=== PATIENT | male | born 1955 | race Caucasian/White ===

== ENCOUNTER 2019-07-12 19:35 | Observation (INO) | payer BC ==
[2019-07-12] MEDS ORDERED: NITROGLYCERIN SL TABS 0.4 MG TAB SUBLINGUAL STA (19:51)
[2019-07-12] MEDS ORDERED: ASPIRIN 81 MG PO STA (19:51)
--- NOTE | 2019-07-12 19:58 | ED ---
Chest Pain HPI - General Chief Complaint: Chest Pain Stated Complaint: chest pain Time Seen by Provider: 07/12/19 19:44 Source: patient, RN notes reviewed Mode of arrival: wheelchair Limitations: no limitations - History of Present Illness Initial Comments: This is a 63-year-old male with a history of hypertension states he had the onset about one hour ago of midsternal lower chest pain dull in nature 4 and 5/10 severity associated with some shortness of breath and diaphoresis. He does state he had an episode earlier today that got better started around 1 PM and did get better quickly. This was not getting better. He has no prior history of heart disease he asked he states he took some Pepto-Bismol without any relief. He also did not take his blood pressure medication today. Is no personal history of any heart or lung disease. He does socially drink about perhaps once a week. Nothing recent. MD Complaint: chest pain, other - Related Data Home Medications Medication Instructions Recorded Confirmed Cholecalciferol [Vitamin D3] 1,000 unit PO DAILY 04/06/16 04/06/16 Febuxostat [Uloric] 80 mg PO MOTUWETHFR 04/06/16 04/06/16 Tadalafil [Cialis] 5 mg PO DAILY PRN 04/06/16 04/06/16 Previous Rx's Medication Instructions Recorded HYDROcodone/APAP 5-325MG [[place] 1 tab PO Q6HR PRN #15 tab 04/06/16 5-325] Ondansetron Odt [Zofran Odt] 4 mg PO Q12HR PRN #10 tab 04/06/16 Tamsulosin HCl [Flomax] 0.4 mg PO DAILY #14 cap 04/06/16 Allergies Allergy/AdvReac Type Severity Reaction Status Date / Time Lajas And Derivatives Allergy Rash/Hives Verified 07/12/19 19:41 [Lajas] Fish Containing Products Allergy Rash/Hives Verified 07/12/19 19:41 [Fish] tomato Allergy Rash/Hives Verified 07/12/19 19:41 Review of Systems ROS Statement: Those systems with pertinent positive or pertinent negative responses have been documented in the HPI. ROS Other: All systems not noted in ROS Statement are negative. EKG Findings - EKG Results: EKG: interpreted by ERMD (Sinus bradycardia rate of 52 AZ interval 204 QRS 84 QT since QTC 458/425 LVH by voltage criteria no acute ST-T wave changes) Past Medical History Past Medical History: Hypertension Additional Past Medical History / Comment(s): kidney stones, gout History of Any Multi-Drug Resistant Organisms: None Reported Past Surgical History: Hernia Repair Past Psychological History: No Psychological Hx Reported Smoking Status: Never smoker Past Alcohol Use History: None Reported Past Drug Use History: None Reported General Exam - General Exam Comments Initial Comments: This is a well-developed well-nourished awake alert oriented times 3 male Limitations: no limitations General appearance: alert, anxious Head exam: Present: atraumatic, normocephalic, normal inspection Eye exam: Present: normal appearance, PERRL, EOMI. Absent: scleral icterus, conjunctival injection, periorbital swelling ENT exam: Present: normal exam, mucous membranes moist Neck exam: Present: normal inspection, full ROM, other (Stridor or bruits). Absent: tenderness, meningismus, lymphadenopathy Respiratory exam: Present: normal lung sounds bilaterally. Absent: respiratory distress, wheezes, rales, rhonchi, stridor Cardiovascular Exam: Present: normal rhythm, bradycardia. Absent: systolic murmur, diastolic murmur, rubs, gallop, clicks GI/Abdominal exam: Present: soft, normal bowel sounds. Absent: distended, tenderness, guarding, rebound, rigid Extremities exam: Present: normal inspection, full ROM, normal capillary refill. Absent: tenderness, pedal edema, joint swelling, calf tenderness Back exam: Present: normal inspection Neurological exam: Present: alert, oriented X3, CN II-XII intact Psychiatric exam: Present: normal affect, normal mood Skin exam: Present: warm, dry, intact, normal color. Absent: rash Course Vital Signs 07/12/19 07/12/19 19:38 19:55 Temperature 98.2 F Pulse Rate 50 L 50 L Respiratory 17 19 Rate Blood Pressure 214/94 190/83 O2 Sat by Pulse 98 97 Oximetry - Reevaluation(s) Reevaluation #1: 07/12/19 21:12 16 year improved after the treatment rendered repeat EKG showed a sinus rhythm of 48 AZ interval 206 QRS 82 QT since QTC 450/40 to LVH no acute ST-T wave changes essentially no change from the previous Chest Pain MDM - MDM Imaging was reviewed no acute findings. Patient did get relief from the pain. I did a long discussion with him regarding the findings I did discuss case with Dr. Johnson. Patient will be admitted for cardiology consultation and evaluation. Per instructions from Dr. Johnson subcu heparin as well as Critical Care Time Critical Care Time: Yes Critical Care Time: Patient to responsive therapy discussion with the admitting physician admission orders and documentation of the above. Disposition Clinical Impression: Unstable angina pectoris, Chest pain, Pancreatitis Disposition: ADMITTED IP TO THIS [facility] Condition: Fair Referrals: Yunier Hernandez MD [Primary Care Provider] - 1-2 days
[2019-07-12 20:04] LABS: Basophils # (A) 0.1 k/uL (0-0.2); Basophils % (A) 2 %; Eosinophils # (A) 0.1 k/uL (0-0.7); Eosinophils % (A) 2 %; HCT 44.6 % (39.0-53.0); HGB 14.9 gm/dL (13.0-17.5); Lymphocytes # (A) 1.7 k/uL (1.0-4.8); Lymphocytes % (A) 23 %; MCH 29.9 pg (25.0-35.0); MCHC 33.4 g/dL (31.0-37.0); MCV 89.4 fL (80.0-100.0); Monocytes # (A) 0.4 k/uL (0-1.0); Monocytes % (A) 6 %; Neutrophils # (A) 4.8 k/uL (1.3-7.7); Neutrophils % (A) 66 %; Platelet Count 188 k/uL (150-450); RBC 4.99 m/uL (4.30-5.90); RDW 13.1 % (11.5-15.5); WBC 7.2 k/uL (3.8-10.6)
[2019-07-12 20:13] LABS: Albumin 4.3 g/dL (3.5-5.0); Calcium 9.3 mg/dL (8.4-10.2); Magnesium 2.1 mg/dL (1.6-2.3); Potassium 4.9 mmol/L (3.5-5.1); Total Bilirubin 0.9 mg/dL (0.2-1.3); Total Protein 7.4 g/dL (6.3-8.2)
[2019-07-12 20:17] LABS: INR 0.9 (<1.2); Partial Thromboplastin Time 28.8 sec (22.0-30.0); Prothrombin Time 9.9 sec (9.0-12.0)
[2019-07-12 20:19] LABS: D-Dimer 0.65 mg/L FEU (<0.60)
[2019-07-12] MEDS ORDERED: NITROGLYCERIN SL TABS 0.4 MG TAB SUBLINGUAL PRN (21:13)
[2019-07-12 21:25] VITALS: RESP 18
[2019-07-13] MEDS ORDERED: HEPARIN SODIUM,PORCINE 5,000 UNIT/ML 1 ML VIAL SQ SCH
[2019-07-13] MEDS ORDERED: ENOXAPARIN 80 MG/0.8 ML SYRINGE SQ STA (07:20)
[2019-07-13] MEDS ORDERED: SODIUM CHLORIDE 0.9% 1,000 ML IV SCH (07:30)
--- NOTE | 2019-07-13 07:40 | XR ---
EXAMINATION TYPE: XR chest 2V DATE OF EXAM: 07/12/2019 COMPARISON: None HISTORY: Chest pain TECHNIQUE: Frontal and lateral views of the chest are obtained. FINDINGS: There is no heart failure nor confluent pneumonic infiltrate. Heart size is normal. There is no pleural effusion. There is slight increased interstitial markings in the lower lung brown. The re are chest leads. IMPRESSION: Minimal fibrotic changes. Normal heart. No heart failure.
[2019-07-13] MEDS ORDERED: ASPIRIN 325 MG TAB PO STA (07:44)
[2019-07-13] MEDS ORDERED: ATORVASTATIN 80 MG TAB PO STA (07:44)
[2019-07-13] MEDS ORDERED: ALPRAZolam 0.25 MG TAB PO PRN (07:44)
[2019-07-13] MEDS ORDERED: NITROGLYCERIN SL TABS 0.4 MG TAB SUBLINGUAL PRN (07:44)
[2019-07-13] MEDS ORDERED: SODIUM CHLORIDE 0.9% 1,000 ML in EMPTY BAG 1 BAG IV ONE (07:44)
[2019-07-13] MEDS ORDERED: ALPRAZolam 0.5 MG TAB PO PRN (07:44)
[2019-07-13 08:12] LABS: Cholesterol 159 mg/dL (<200); HDL Cholesterol 52 mg/dL (40-60); LDL Cholesterol,Calculated 86 mg/dL (0-99); Triglycerides 104 mg/dL (<150)
[2019-07-13] MEDS ORDERED: METOPROLOL TARTRATE 12.5 MG TAB PO SCH (09:00)
[2019-07-13] MEDS ORDERED: ASPIRIN 325 MG TAB PO SCH (09:00)
[2019-07-13] MEDS ORDERED: IV FLUID CONTINUATION 1,000 ML IV ONE (10:30)
[2019-07-13] MEDS ORDERED: LIDOCAINE 1% INJ 10MG/ML (20 ML MDV) SQ ONE (10:39)
[2019-07-13] MEDS ORDERED: MIDAZOLAM 2 MG/2 ML VIAL IV ONE (10:39)
[2019-07-13] MEDS: VERAPAMIL SYRINGE (5 MG/10 ML) INTRAARTER ONE ×2 (10:40→10:53)
[2019-07-13] MEDS ORDERED: HEPARIN SODIUM 1,000 UN/ML (10ML VL) IV ONE (10:43)
--- NOTE | 2019-07-13 10:46 | CONS ---
CONSULTATION Mr. 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 He was playing pickle ball yesterday in the morning and developed some chest pressure and tightness that seemed to progressively get worse. He felt concerned, went home and felt better for a while but again in the 6 pm while he was doing some walking around the house, he felt the same pressure come on. He came into the hospital. EKG on arrival revealed a sinus mechanism with inferior nondiagnostic Q-waves and borderline voltage criteria for LVH. No acute findings are noted. His 3 sets of troponins were obtained. The initial one was 0.02 and then came down. They are not completely normal, but they are in the diaz zone with a profile raising the possibility of being related to his chest discomfort. However, he is more comfortable at this time, but earlier in the day he had chest pressure. His D-dimer was borderline elevated at 0.65. He has hypertension, but no other major risk factors. He does not smoke. He is a reasonably active person who was playing pickle ball yesterday when this occurred. Patient's symptoms of chest pressure occurred as he was playing pickAgitar ball and progressively got worse associated with some diaphoresis. It got better, but it came back again in the evening. He took some Pepto-Bismol without relief. Quality of pain does suggest angina and troponin is elevated to a more borderline extent. PAST MEDICAL HISTORY: 1. Hypertension. 2. Benign prostatic hypertrophy. 3. Renal stones and gout. 4. Status post hernia surgery for his umbilical hernia. MEDICATIONS: At home include [place] for pain. Flomax 0.4 mg daily, also takes vitamin supplements. He also takes losartan 25 mg daily. ALLERGIES: He is not allergic to any medications. PHYSICAL EXAMINATION: Blood pressure is 140/80, pulse rate is 60 per minute, regular. HEENT: Unremarkable. Fundus was not examined by me. NECK: Supple. No JVD. I do not hear a carotid bruit. There is no thyromegaly. HEART: Exam reveals S1, S2 heard normally. No significant murmurs. LUNGS: Clear. ABDOMEN: Soft, nontender. LOWER EXTREMITIES: Reveal normal pulses. No edema. CENTRAL NERVOUS SYSTEM: Grossly within normal limits. EKG revealed sinus mechanism, nonspecific ST changes, borderline voltage criteria for LVH and nondiagnostic inferior Q-waves. IMPRESSION: 1. Acute ischemic syndrome. Cannot exclude coronary artery disease. 2. Hypertension. 3. History of gout. RECOMMENDATIONS: I am recommending that we anticoagulate him and proceed with coronary angiography. I explained to him the rationale, risks, benefits, and options. Patient's presentation, symptomatology with exercise strongly suggest unstable angina. The patient understands risks, benefits, options, rationale and wishes to proceed with the procedure. MMODL / IJN: [id number] /
[2019-07-13] MEDS ORDERED: IOPAMIDOL-370 100ML BTL INJ ONE (10:54)
--- NOTE | 2019-07-13 11:53 | CC ---
CARDIAC CATHETERIZATION REPORT DATE OF SERVICE: 07/13/2019 PROCEDURE: 1. Left heart catheterization, coronary angiography. Moderate conscious sedation time was 16 minutes. PROCEDURE PERFORMED: By Dr. Hamlet Michael. CLINICAL INFORMATION: Mr. Chuy Arvizu is a 63-year-old gentleman with a history of hypertension who came into the hospital with chest pressure suggestive angina that occurred on two occasions associated with some diaphoresis. His troponins were negative, but because of his presentation and risk factors, he was advised coronary angiography after due discussion regarding risks, benefits, and options. PROCEDURE NOTE: Under local anesthesia and strict aseptic precautions, a 6-Indonesian introducer was placed in the right radial artery. Using a 3.5 left and a 4.0 right Ron catheters, I performed coronary angiography and then checked LV pressures but did not perform LV gram. The same right catheter was used to check LV pressures. Sheath was taken out and TR band applied as per protocol and patient was sent to the room in stable condition. CARDIAC CATHETERIZATION FINDINGS: The left ventricle end-diastolic pressure was about 14 mmHg without any gradient across the aortic valve. CORONARY ANGIOGRAPHY FINDINGS: 1. RIGHT CORONARY ARTERY: Technically dominant vessel. No significant disease distally, bifurcates into small PLV, large PDA, both of which are free of significant disease and there is no significant disease in the dominant RCA. 2. LEFT MAIN CORONARY ARTERY: Short patent, disease-free vessel that bifurcates into LAD and circumflex. 3. LEFT ANTERIOR DESCENDING CORONARY ARTERY: Good caliber vessel, extends along the anterior wall, gives off a large diagonal branch in the midportion, several small diagonal and septal branches, runs all the way to the apex, has minor irregularities and no significant disease. 4. LEFT POSTERIOR CIRCUMFLEX CORONARY ARTERY: Nondominant vessel, gives off a single obtuse marginal that runs laterally, divides into two branches and a second small obtuse marginal branch. There are minor irregularities, but no significant obstructive disease is noted. 5. LEFT VENTRICULOGRAM: This was not performed. FINAL IMPRESSION: This patient has a right dominant system, noncritical coronary artery disease, slightly elevated filling pressures without any gradient across the aortic valve. RECOMMENDATION: I am recommending continued medical therapy with optimal BP control. Patient can be discharged later on today if he remains stable. Same medical regimen and I will see him in the office in about a week or so. Findings were discussed with the patient and family. MMODL / IJN: [id number] /
--- NOTE | 2019-07-13 12:09 | ECHOF ---
Referral Reason:Chest pain MEASUREMENTS -------- HEIGHT: 182.9 cm WEIGHT: 104.3 kg BP: 151/74 RVIDd: 3.9 cm (< 3.3) IVSd: 1.4 cm (0.6 - 1.1) LVIDd: 4.5 cm (3.9 - 5.3) LVPWd: 1.5 cm (0.6 - 1.1) IVSs: 1.8 cm LVIDs: 3.5 cm LVPWs: 1.7 cm LA Diam: 4.2 cm (2.7 - 3.8) LAESV Index (A-L): 34.19 ml/m Ao Diam: 3.2 cm (2.0 - 3.7) AV Cusp: 2.1 cm (1.5 - 2.6) MV EXCURSION: 19.135 mm (> 18.000) MV EF SLOPE: 95 mm/s (70 - 150) EPSS: 0.5 cm MV E Nicolas: 0.86 m/s MV DecT: 159 ms MV A Nicolas: 0.61 m/s MV E/A Ratio: 1.41 RAP: 5.00 mmHg RVSP: 36.04 mmHg FINDINGS -------- Sinus rhythm. This was a technically adequate study. The left ventricular size is normal. There is moderate concentric left ventricular hypertrophy. O verall left ventricular systolic function is normal with, an EF between 60 - 65 %. The right ventricle is mild to moderately enlarged. LA is moderately dilated 34-39 ml/m2 The right atrium is normal in size. Interatrial and interventricular septum intact. Aortic valve is trileaflet and is mildly thickened. Trace amount of aortic regurgitation. The mitral valve leaflets are mildly thickened. There is trace to mild mitral regurgitation. Mild tricuspid regurgitation present. There is mild pulmonary hypertension. The right ventricular systolic pressure, as measured by Doppler, is 36.04mmHg. Trace/mild (physiologic) pulmonic regurgitation. The aortic root size is normal. IVC Not well visulized. There is no pericardial effusion. CONCLUSIONS -------- 1. Sinus rhythm. 2. This was a technically adequate study. 3. The left ventricular size is normal. 4. There is moderate concentric left ventricular hypertrophy. 5. Overall left ventricular systolic function is normal with, an EF between 60 - 65 %. 6. The right ventricle is mild to moderately enlarged. 7. LA is moderately dilated 34-39 ml/m2 8. The right atrium is normal in size. 9. Interatrial and interventricular septum intact. 10. Aortic valve is trileaflet and is mildly thickened. 11. Trace amount of aortic regurgitation. 12. The mitral valve leaflets are mildly thickened. 13. There is trace to mild mitral regurgitation. 14. Mild tricuspid regurgitation present. 15. There is mild pulmonary hypertension. 16. The right ventricular systolic pressure, as measured by Doppler, is 36.04mmHg. 17. Trace/mild (physiologic) pulmonic regurgitation. 18. The aortic root size is normal. 19. IVC Not well visulized. 20. There is no pericardial effusion. [employer]: MARY Marrero
[2019-07-13] MEDS ORDERED: LOSARTAN 25 MG TAB PO SCH (13:30)
--- NOTE | 2019-07-13 15:08 | P.HPIM ---
<Evangelina Luque A - Last Filed: 07/13/19 14:46> History of Present Illness H&P Date: 07/13/19 Chief Complaint: CHest pain HISTORY AND PHYSICAL AND DISCHARGE SUMMARY: Is a 63-year-old male patient of Dr. Hernandez with past medical history of hypertension, gout, kidney stones, seasonal ALLERGIES. Patient does not have any history of cardiac disease or stroke. Patient complains of onset of chest pressure that started yesterday. He states he will play pickle ball in the morning and was feeling fine at that time. Around 1 in the afternoon he developed chest pain that was in the center of his chest and he thought it was in digestion so he took Pepto-Bismol. After 1 hour this went away. At 6:30 the same discomfort came back while he was watching TV. The pain did not get worse with movement. He was unable to find a comfortable position. He denies any dysphagia. No tenderness to the epigastric or right upper quadrant. Initial blood pressure was 214/94, heart rate 50s, afebrile, pulse ox 90% on room air. Patient was placed on the observation unit and seen in consultation by cardiology. Heart catheterization was done which revealed right dominant system, noncritical coronary artery disease, slightly elevated filling pressures without any gradient across the aortic valve. Recommendations for blood pressure control. Patient was resumed on losartan and cleared for discharge home today. Echocardiogram reveals EF of 60-65% with moderate concentric left ventricular hypertrophy, trace to mild mitral regurgitation, mild tricuspid regurgitation, mild pulmonary hypertension with RVSP 36 mmHg. Review of Systems Constitutional: Denies chills, Denies fatigue, Denies fever, Denies lethargy, Denies night sweats, Denies poor appetite Eyes: denies blurred vision, denies pain Ears, nose, mouth and throat: Denies dysphagia, Denies headache, Denies nasal congestion, Denies nasal discharge, Denies sore throat Cardiovascular: Reports chest pain, Denies decreased exercise tolerance, Denies dyspnea on exertion, Denies edema, Denies irregular heart beat, Denies leg edema, Denies lightheadedness, Denies orthopnea, Denies palpitations, Denies shortness of breath, Denies syncope Respiratory: Reports excessive sputum, Denies cough, Denies cough with sputum, Denies dyspnea, Denies hemoptysis, Denies home oxygen, Denies respiratory infections, Denies wheezing Gastrointestinal: Denies abdominal pain, Denies diarrhea, Denies loss of appetite, Denies nausea, Denies vomiting Genitourinary: Denies dysuria, Denies urinary retention Musculoskeletal: Denies frequent falls, Denies gait dysfunction, Denies muscle weakness, Denies myalgias Integumentary: Denies color changes, Denies pruritus, Denies rash, Denies wounds Neurological: Denies change in mentation, Denies change in speech, Denies numbness, Denies weakness Psychiatric: Denies anxiety, Denies depression Endocrine: Denies fatigue, Denies weight change Past Medical History Past Medical History: Hypertension Additional Past Medical History / Comment(s): kidney stones, gout History of Any Multi-Drug Resistant Organisms: None Reported Past Surgical History: Hernia Repair Past Anesthesia/Blood Transfusion Reactions: No Reported Reaction Smoking Status: Never smoker Additional Past Alcohol Use History / Comment(s): The patient is a lifelong nonsmoker, no illicit drug use. He drinks alcohol occasionally maybe once per week. He does not require CPAP or oxygen at home. Lives at home with his . - Past Family History Father Family Medical History: No Reported History Additional Family Medical History / Comment(s): Father is with history of occupational lung disease. Mother Family Medical History: Cancer Additional Family Medical History / Comment(s): Mother is from kidney cancer. Brother(s) Additional Family Medical History / Comment(s): Patient has one brother that had prostate cancer and 1 brother with no major medical problems. Patient has 7 sisters with no major medical problems. Patient has 3 sons and 2 daughters with no major medical problems. Medications and Allergies Home Medications Medication Instructions Recorded Confirmed Type Cholecalciferol (Vitamin D3) 4,000 unit PO DAILY 07/12/19 07/12/19 History [Vitamin D3] Febuxostat [Uloric] 80 mg PO MOWEFR 07/13/19 07/13/19 History Losartan Potassium [Cozaar] 25 mg PO DAILY 07/13/19 07/13/19 History Allergies Allergy/AdvReac Type Severity Reaction Status Date / Time Kidder And Derivatives Allergy Rash/Hives Verified 07/12/19 21:57 [Kidder] Fish Containing Products Allergy Anaphylaxis Verified 07/12/19 21:57 [Fish] Melon Allergy Rash/Hives Verified 07/12/19 21:57 tomato Allergy Rash/Hives Verified 07/12/19 21:57 tree nut [Pecan] Allergy Rash/Hives Verified 07/12/19 21:57 walnut Allergy Rash/Hives Verified 07/12/19 21:57 watermelon Allergy Rash/Hives Verified 07/12/19 21:57 Physical Exam Vitals: Vital Signs Temp Pulse Pulse Pulse Resp BP BP 07/13/19 12:00 52 L 18 145/94 07/13/19 11:45 44 L 139/81 07/13/19 11:30 44 L 144/77 07/13/19 11:15 97.1 F L 44 L 18 142/69 07/13/19 07:10 97.7 F 45 L 18 07/13/19 04:00 97.6 F 44 L 18 07/13/19 03:15 18 07/12/19 22:15 18 07/12/19 22:01 97.6 F 49 L 18 07/12/19 21:33 98.0 F 07/12/19 21:00 46 L 18 143/71 07/12/19 20:40 49 L 20 129/71 07/12/19 20:20 50 L 19 152/76 07/12/19 19:55 50 L 19 190/83 07/12/19 19:53 50 L 18 07/12/19 19:38 98.2 F 50 L 17 214/94 BP Pulse Ox 07/13/19 12:00 93 L 07/13/19 11:45 96 07/13/19 11:30 97 07/13/19 11:15 95 07/13/19 07:10 154/89 96 07/13/19 04:00 151/74 96 07/13/19 03:15 07/12/19 22:15 07/12/19 22:01 184/85 96 07/12/19 21:33 07/12/19 21:00 97 07/12/19 20:40 95 07/12/19 20:20 95 07/12/19 19:55 97 07/12/19 19:53 07/12/19 19:38 98 Intake and Output 07/12/19 07/13/19 07/13/19 22:59 06:59 14:59 Intake Total 100 Balance 100 Intake: IV 100 Other: # Voids 1 Weight 104.326 kg Gen: This is a 63-year-old male. He is resting in bed appears to be comfortable and in no acute distress. HEENT: Head is atraumatic, normocephalic. Pupils equal, round. Sclerae is anicteric. NECK: Supple. No JVD. No lymphadenopathy. No thyromegaly. LUNGS: Clear to auscultation. No wheezes or rhonchi. No intercostal retractions. No chest wall tenderness. HEART: Regular rate and rhythm. No murmur. ABDOMEN: Soft. Bowel sounds are present. No masses. No tenderness. EXTREMITIES: No pedal edema. No calf tenderness. NEUROLOGICAL: Patient is awake, alert and oriented x3. Cranial nerves 2 through 12 are grossly intact. Results CBC & Chem 7: 07/12/19 19:50 07/12/19 19:50 Labs: Abnormal Lab Results - Last 24 Hours (Table) 07/12/19 07/12/19 Range/Units 19:50 19:50 D-Dimer 0.65 H (<0.60) mg/L FEU Chloride 108 H (98-107) mmol/L BUN 22 H (9-20) mg/dL Creatinine 1.28 H (0.66-1.25) mg/dL AST 75 H (17-59) U/L Alkaline Phosphatase 145 H (38-126) U/L Creatine Kinase 417 H (55-170) U/L Lipase 467 H (23-300) U/L Thrombosis Risk Factor Assmnt - Choose All That Apply Each Risk Factor Represents 2 Points: Age 61-74 years Thrombosis Risk Factor Assessment Total Risk Factor Score: 2 Thrombosis Risk Factor Assessment Level: Low Risk Assessment and Plan Plan: 1. Chest pain, heart catheterization negative. 2. Seasonal ALLERGIES, stable. 3. Hypertensive emergency. 4. Hypertension. 5. Chronic gout. Patient placed in the observation unit. Discharge plan: Home Discharge Medication List--no change in home medications Cholecalciferol (Vitamin D3) [Vitamin D3] 4,000 unit PO DAILY 07/12/19 [History] Febuxostat [Uloric] 80 mg PO MOWEFR 07/13/19 [History] Losartan Potassium [Cozaar] 25 mg PO DAILY 07/13/19 [History] Impression and plan of care have been directed as dictated by the signing physician. Evangelina Luque nurse practitioner acting as scribe for signing physician. <Stacey Johnson - Last Filed: 07/23/19 15:06> Results CBC & Chem 7: 07/12/19 19:50 07/12/19 19:50
[2019-07-13 15:23] VITALS: BP 135/75; PULSE 46; TEMP 98.4
== END 2019-07-13 17:28 | disposition home or self-care (01) ==
LOC: EC 19:35 → 1SOBS 21:13
PROVIDERS: ADMIT Family Medicine; ATTEND Family Medicine
DX: I20.0 Unstable angina (principal); I25.110 Atherosclerotic heart disease of native coronary artery with unstable angina pectoris; I10 Essential (primary) hypertension; I16.1 Hypertensive emergency; K85.90 Acute pancreatitis without necrosis or infection, unspecified; M1A.9XX0 Chronic gout, unspecified, without tophus (tophi); Z87.442 Personal history of urinary calculi; N40.0 Benign prostatic hyperplasia without lower urinary tract symptoms; Z83.6 Family history of other diseases of the respiratory system; Z80.51 Family history of malignant neoplasm of kidney; Z80.42 Family history of malignant neoplasm of prostate; Z79.891 Long term (current) use of opiate analgesic; Z79.899 Other long term (current) drug therapy; Z91.018 Allergy to other foods; J30.2 Other seasonal allergic rhinitis
CPT/HCPCS: 93005 ×2; 96372 ×2; 99291; 36415; 93306; 93458; 85379; 83880; 80061; 80053; 82550; 83690; 83735; 84484 ×2; 85025; 85610; 85730; 71046; G0378 ×2; C1769 ×2; C1894; J2250; J1644 ×2; J2001; J1650; Q9967

== ENCOUNTER → 2020-02-29 | Outpatient (CLI) | payer BC ==
--- NOTE | 2020-02-29 10:48 | US ---
EXAMINATION TYPE: US abdomen complete DATE OF EXAM: 02/29/2020 COMPARISON: CT 2016 CLINICAL HISTORY: N20.0 Kidney stone. Right flank pain x couple days, hematuria, history of kidney st ones, patient scheduled to have gallbladder taken out 03/03/20. EXAM MEASUREMENTS: Liver Length: 16.9 cm Gallbladder Wall: 0.2 cm CBD: 0.4 cm Spleen: 12.5 cm Right Kidney: 10.6 x 5.0 x 5.3 cm Left Kidney: 11.1 x 5.6 x 5.3 cm Pancreas: obscured by overlying midline bowel gas Liver: limited visualization, scanned intercostally Gallbladder: cholelithiasis Evidence for sonographic Duffy's sign: no CBD: visualized portions wnl, limited by overlying bowel gas Spleen: wnl Right Kidney: 0.4cm echogenic focus inferior pole, dilated renal pelvis Left Kidney: 3.1 x 3.0 x 2.3cm hypoechoic area inferior pole Upper IVC: wnl Abd Aorta: proximal portion obscured by overlying midline bowel gas, mid and distal portion wnl The liver is homogenous. The intrahepatic portion of the IVC and proximal abdominal aorta are within normal limits. Common bile duct is unremarkable. The visualized portions of the pancreas are homo genous. The spleen is unremarkable IMPRESSION: 1. Cholelithiasis. 2. Right renal calculus measuring 4 mm with mild hydronephrosis suggested.
== END | disposition home or self-care (01) ==
LOC: RADUSWWP 09:35
PROVIDERS: ATTEND Internal Medicine Geriatric Medicine
DX: N20.0 Calculus of kidney (principal); K80.20 Calculus of gallbladder without cholecystitis without obstruction
CPT/HCPCS: 76700

== ENCOUNTER 2020-03-03 07:44 | Day surgery (SDC) | payer BC ==
[2020-02-29 11:11] VITALS: BMI 27.8
[~2020-03-03 07:44] MED LIST: ACETAMINOPHEN TAB 500 MG TAB PO ONE; DEXAMETHASONE SOD PHOSPHATE 10 MG/ML 1 ML VIAL IV ONE; HEPARIN SODIUM,PORCINE 5,000 UNIT/ML 1 ML VIAL SQ ONE; HYDROmorphone 0.5 MG/0.5 ML SYRINGE IVP PRN; LACTATED RINGERS 1,000 ML IV SCH; LIDOCAINE 1% (10MG/ML) FOR IV START INTRADERMA PRN; MIDAZOLAM 2 MG/2 ML VIAL IV PRN; fentaNYL (PF) 50 MCG/ML 2 ML AMP IVP PRN
[2020-03-03 08:08] VITALS: RESP 16
[2020-03-03] MEDS ORDERED: ONDANSETRON 4 MG/2 ML VIAL ONE (08:12)
[2020-03-03] MEDS ORDERED: HEPARIN SODIUM,PORCINE 5,000 UNIT/ML 1 ML VIAL ONE (08:13)
[2020-03-03] MEDS ORDERED: DEXAMETHASONE SOD PHOSPHATE 10 MG/ML 1 ML VIAL IV ONE (08:30)
[2020-03-03] MEDS ORDERED: LIDOCAINE 1% INJ 10MG/ML (20 ML MDV) ONE (10:08)
[2020-03-03] MEDS ORDERED: NEOSTIGMINE 1 MG/ML 10 ML VIAL ONE (10:08)
[2020-03-03] MEDS ORDERED: MIDAZOLAM 2 MG/2 ML VIAL ONE (10:08)
[2020-03-03] MEDS ORDERED: SUCCINYLCHOLINE CHLORIDE 100 MG/5 ML SYR IV ONE (10:08)
[2020-03-03] MEDS ORDERED: fentaNYL (PF) 50 MCG/ML 2 ML AMP ONE (10:08)
[2020-03-03] MEDS ORDERED: ROCURONIUM BROMIDE 10 MG/ML 5 ML VIAL IV ONE (10:08)
[2020-03-03] MEDS ORDERED: GLYCOPYRROLATE 0.2 MG/ML 2 ML VIAL ONE (10:08)
[2020-03-03] MEDS ORDERED: PROPOFOL 10 MG/ML 20 ML VIAL IV ONE (10:08)
[2020-03-03] MEDS ORDERED: BUPIVACAIN-EPI 0.25%-1:200,000 30 ML VIAL SQ ONE ×2 (10:26)
[2020-03-03] MEDS ORDERED: LACTATED RINGERS 1,000 ML IV ONE ×2 (10:53)
[2020-03-03] MEDS ORDERED: NALOXONE 0.4 MG/ML 1 ML VIAL IV PRN (11:40)
[2020-03-03] MEDS ORDERED: HYDROcodone/APAP 5-325MG 1 EACH TAB PO PRN (11:40)
[2020-03-03 11:42] VITALS: TEMP 97.2
--- NOTE | 2020-03-03 11:43 | P.OP ---
Date of Procedure: 03/03/20 Procedure(s) Performed: PREOPERATIVE DIAGNOSIS: Chronic cholecystitis POSTOPERATIVE DIAGNOSIS: Same PROCEDURE: Laparoscopic cholecystectomy SURGEON: Theron EBL: Minimal see anesthesia record ANESTHESIA: Gen. COMPLICATIONS: None OPERATIVE PROCEDURE: The patient was brought and placed on the operating room table in the supine position. The patient was placed under general anesthesia at that time. The abdomen was prepped and draped in the usual sterile fashion. A small horizontal incision was made in the left upper quadrant. Entrance into the perineal cavity occurred using an optical 5 mm trocar. We did this given the patient's previous umbilical herniorrhaphy with mesh. As we inspected the abdominal cavity there were some adhesions between the omentum and the abdominal wall at the umbilicus. A small incision was made superior to the umbilicus. A 5 mm trocar was placed there for our camera. 2 additional 5 mm trochars were placed in the right upper quadrant under direct visualization. A 12 mm trocar was advanced into the epigastric incision site. The gallbladder was chronically inflamed with a thickened wall. There were some adhesions between the omentum and the gallbladder which were lysed using blunt dissection and electrocautery. The gallbladder was retracted superiorly and laterally. The peritoneum overlying the infundibulum was bluntly dissected. The patient's cystic duct was visualized. The junction between the cystic duct common and hepatic duct was identified. The cystic duct was then divided after placement of 3 12 mm clips on the patient's side and one on the specimen side. The cystic artery was identified and clipped as well. A small vessel was seen along the gallbladder fossa and clipped as well. The gallbladder was then removed from the liver bed using electrocautery. There was very little plane between the gallbladder and the liver. This had fairly impressive chronic inflammation in this area. The gallbladder was then removed from the epigastric trocar site with an Endo Catch bag. The gallbladder fossa was irrigated with saline. There was a small amount of bleeding from the liver bed itself. This was controlled using electrocautery. No further bleeding was seen. The fascia at the 12 millimeter site was closed using a [id number] 0 Vicryl stitch. The trochars were then removed. The skin at all 5 sites was closed using a 4-0 Monocryl stitch. Skin glue was utilized on the incision sites. At the end of this procedure the sp onge and needle counts were correct. DISPOSITION: Stable to the recovery room
[2020-03-03] MEDS ORDERED: HYDROcodone/APAP 5-325MG 1 EACH TAB ONE (12:55)
[2020-03-03] MEDS ORDERED: HYDROcodone/APAP 5-325MG 1 EACH TAB PO ONE (13:00)
[2020-03-03] MEDS ORDERED: TAMSULOSIN 0.4 MG CAP.ER.24H PO ONE (15:35)
[2020-03-03 16:46] VITALS: BP 143/67; PULSE 55
== END 2020-03-03 16:47 | disposition home or self-care (01) ==
LOC: OR 07:44
PROVIDERS: ATTEND Surgery
DX: K80.10 Calculus of gallbladder with chronic cholecystitis without obstruction (principal); I10 Essential (primary) hypertension; Z79.899 Other long term (current) drug therapy; Z91.013 Allergy to seafood; Z91.018 Allergy to other foods; M10.9 Gout, unspecified; Z87.442 Personal history of urinary calculi; Z98.52 Vasectomy status; Z98.890 Other specified postprocedural states; Z83.3 Family history of diabetes mellitus; Z80.51 Family history of malignant neoplasm of kidney
CPT/HCPCS: 88304; 47562; J2250; J1644; J1100; J2710; J0690; J2405; J2001; J3010; J0330; J2704

== ENCOUNTER 2020-03-03 20:18 | Emergency (ER) | payer BC ==
--- NOTE | 2020-03-03 21:02 | ED ---
General Adult HPI - General Chief complaint: Urogenital Stated complaint: Trouble urinating Time Seen by Provider: 03/03/20 20:28 Source: patient, RN notes reviewed, old records reviewed Mode of arrival: ambulatory Limitations: no limitations - History of Present Illness Initial comments: 64-year-old male patient presents to ED for evaluation of postoperative urinary retention. Patient had his gallbladder removed today due to chronic cholecystitis by Dr. Crump. Has not spontaneous voided since the surgery. Had a straight catheterization after a trial of void after the procedure. For that he is still not been able to void. Denies any other complaints. States abdominal discomfort after procedure is minimal. Systemic: Pt denies fatigue, fever/chills, rash. Pt denies weakness, night sweats, weight loss. Neuro: Pt denies headache, visual disturbances, syncope or pre-syncope. HEENT: Pt denies ocular discharge or irritation, otalgia, rhinorrhea, pharyngitis or notable lymphadenopathy. Cardiopulmonary: Pt denies chest pain, SOB, heart palpitations, dyspnea on exertion. Abdominal/GI: Pt denies n/v/d. : Pt denies dysuria, burning w/ urination, frequency/urgency. Denies new onset urinary or bowel incontinence. MSK: Pt denies myalgia, loss of strength or function in extremities. Neuro: Pt denies new onset weakness, paresthesias. - Related Data Home Medications Medication Instructions Recorded Confirmed Cholecalciferol (Vitamin D3) 4,000 unit PO DAILY 07/12/19 02/29/20 [Vitamin D3] Febuxostat [Uloric] 80 mg PO MO 07/13/19 02/29/20 Losartan Potassium [Cozaar] 25 mg PO DAILY 07/13/19 02/29/20 Multivitamins, Thera [Multivitamin 1 tab PO DAILY 02/29/20 02/29/20 (formulary)] Allergies Allergy/AdvReac Type Severity Reaction Status Date / Time [place] And Derivatives Allergy Rash/Hives Verified 03/03/20 20:22 [[place]] Fish Containing Products Allergy Anaphylaxis Verified 03/03/20 20:22 [Fish] Melon Allergy Rash/Hives Verified 03/03/20 20:22 tomato Allergy Rash/Hives Verified 03/03/20 20:22 tree nut [Pecan] Allergy Rash/Hives Verified 03/03/20 20:22 walnut Allergy Rash/Hives Verified 03/03/20 20:22 watermelon Allergy Rash/Hives Verified 03/03/20 20:22 Review of Systems ROS Statement: Those systems with pertinent positive or pertinent negative responses have been documented in the HPI. ROS Other: All systems not noted in ROS Statement are negative. Past Medical History Past Medical History: Hypertension Additional Past Medical History / Comment(s): kidney stones, gout History of Any Multi-Drug Resistant Organisms: None Reported Past Surgical History: Cholecystectomy, Hernia Repair Past Anesthesia/Blood Transfusion Reactions: No Reported Reaction Past Psychological History: No Psychological Hx Reported Smoking Status: Never smoker Past Alcohol Use History: None Reported Past Drug Use History: None Reported - Past Family History Father Family Medical History: No Reported History Additional Family Medical History / Comment(s): Father is with history of occupational lung disease. Mother Family Medical History: Cancer Additional Family Medical History / Comment(s): Mother is from kidney cancer. Brother(s) Additional Family Medical History / Comment(s): Patient has one brother that had prostate cancer and 1 brother with no major medical problems. Patient has 7 sisters with no major medical problems. Patient has 3 sons and 2 daughters with no major medical problems. General Exam - General Exam Comments Initial Comments: Constitutional: NAD, AOX3, Pt has pleasant affect. HEENT: NC/AT, trachea midline, neck supple, no lymphadenopathy. External ears appear normal, without discharge. Mucous membranes moist. EOM intact. There is no scleral icterus. No pallor noted. Cardiopulmonary: RRR, no murmurs, rubs or gallops, no JVD noted. Lungs CTAB in anterior and posterior brown. No peripheral edema. Abdominal exam: Abdomen soft and non-distended. Abdomen mildly tender to palpation around incision sites. Bowel sounds active in LLQ. No hepatosplenomegaly. No ecchymosis. Incision sites clean, dry, no eryrhema d rainage or streaking. Neuro: CN II-XII grossly intact. No nuchal rigidity. No raccon eyes, no wilder sign, no hemotympanum. No cervical spinal tenderness. MSK: Full active ROM in upper and lower extremities, 5/5 stregnth. Limitations: no limitations Course Vital Signs 03/03/20 20:21 Temperature 98.2 F Pulse Rate 71 Respiratory 16 Rate Blood Pressure 155/68 O2 Sat by Pulse 100 Oximetry Medical Decision Making - Medical Decision Making 64-year-old male patient was seen for evaluation of urinary retention after surgical procedure today. Does also have history of BPH. Patient vital signs stable, afebrile. Physical exam does not display acute pathology. Bladder scan revealed 900 mL. Vargas was placed at patient consent. Urine not display signs of infection. Patient discharged with outpatient neurology follow-up as well as his primary care provider and will have scheduled follow-up with the surgeon following the procedure. We'll trauma to the ER any worsening symptoms. Case discussed with Dr. Parson. - Lab Data Lab Results 03/03/20 Range/Units 21:12 Urine Color Light Yellow Urine Appearance Clear (Clear) Urine pH 5.5 (5.0-8.0) Ur Specific [place] 1.006 (1.001-1.035) Urine Protein Negative (Negative) Urine Glucose (UA) Negative (Negative) Urine Ketones Negative (Negative) Urine Blood Small H (Negative) Urine Nitrite Negative (Negative) Urine Bilirubin Negative (Negative) Urine Urobilinogen <2.0 (<2.0) mg/dL Ur Leukocyte Esterase Negative (Negative) Urine RBC 5 (0-5) /hpf Urine WBC 1 (0-5) /hpf Ur Squamous Epith Cells <1 (0-4) /hpf Urine Bacteria Rare H (None) /hpf Hyaline Casts 1 (0-2) /lpf Disposition Clinical Impression: Urinary retention, Postoperative urinary retention Disposition: HOME SELF-CARE Condition: Stable Instructions (If sedation given, give patient instructions): Vargas Catheter Placement and Care (ED) Additional Instructions: Follow-up with primary care provider and urologist tomorrow. Return to ER if condition worsens. Follow-up with surgeon for postoperative routine follow-up. Return to ER if condition worsens. Is patient prescribed a controlled substance at d/c from ED?: No Referrals: Yunier Hernandez MD [Primary Care Provider] - 1-2 days Lopez López MD [STAFF PHYSICIAN] - 1-2 days
[2020-03-03 22:00] LABS: Appearance,Urine Clear (Clear); Bacteria,Urine Rare /hpf; Bilirubin,Urine Negative (Negative); Blood,Urine Small (Negative); Color,Urine Light Yellow; Glucose,Urine (UA) Negative (Negative); Hyaline Casts,Urine 1 /lpf (0-2); Ketones,Urine Negative (Negative); Leukocyte Esterase,Urine Negative (Negative); Nitrite,Urine Negative (Negative); PH, Urine 5.5 (5.0-8.0); Protein,Urine Negative (Negative); RBC,Urine 5 /hpf (0-5); Specific Gravity,Urine 1.006 (1.001-1.035); Squamous Epithelial Cell,Urine <1 /hpf (0-4); Urobilinogen,Urine <2.0 mg/dL (<2.0); WBC,Urine 1 /hpf (0-5)
[2020-03-03 22:35] VITALS: BP 146/78; PULSE 90; RESP 18; TEMP 98
== END 2020-03-03 22:35 | disposition home or self-care (01) ==
LOC: EC 20:18
DX: N99.89 Other postprocedural complications and disorders of genitourinary system (principal); N40.1 Benign prostatic hyperplasia with lower urinary tract symptoms; M10.9 Gout, unspecified; Z87.442 Personal history of urinary calculi; Z79.899 Other long term (current) drug therapy; Z91.018 Allergy to other foods
CPT/HCPCS: 51702; 51798; 81001; 99284

== ENCOUNTER → 2020-07-11 | Outpatient (CLI) | payer BC ==
[2020-07-11 23:54] LABS: African American GFR (CKD) 41.7 (60.0-200.0); Anion Gap 7.2 mmol/L (4.00-12.00); BUN/Creat Ratio 18.95 Ratio (12.00-20.00); Calcium 9.2 mg/dL (8.7-10.3); Carbon Dioxide 27.8 mmol/L (21.6-31.8); Non-African American GFR(CKD) 35.9 (60.0-200.0); Potassium 4.4 mmol/L (3.5-5.5)
== END | disposition home or self-care (01) ==
LOC: LABWHC1 14:37
PROVIDERS: ATTEND Urology
DX: N18.2 Chronic kidney disease, stage 2 (mild) (principal)
CPT/HCPCS: 36415; 80048

== ENCOUNTER → 2020-07-28 | Outpatient (CLI) | payer BC ==
--- NOTE | 2020-07-28 15:54 | US ---
EXAMINATION TYPE: US kidneys/renal and bladder DATE OF EXAM: 07/28/2020 COMPARISON: CT April 06, 2016. Abdominal ultrasound February 29, 2020. CLINICAL HISTORY: N13.8 chronic Kidney diease stage 3. Abnormal labs EXAM MEASUREMENTS: Right Kidney: 9.2 x 4.6 x 5.0 cm Left Kidney: 11.4 x 5.6 x 4.8 cm Right Kidney: Appeared wnl Left Kidney: Cyst with septation lower/lateral= 3.6 x 3.0 x 3.6 cm Bladder: Pt was not given prep to fill bladder, not well visualized Incidental finding enlarged prostate There is no evidence for hydronephrosis at this point in time. No nephrolithiasis is seen. No lorenzo s are identified. The urinary bladder is poorly distended and is thus suboptimally evaluated. Bilat eral ureteral jets are not seen. Enlarged prostate gland bulging on the bladder base is noted. IMPRESSION: No hydronephrosis noted bilaterally. Asymmetric diminished size to right kidney redemonst rated. Markedly enlarged prostate gland consistent with BPH redemonstrated.
== END | disposition home or self-care (01) ==
LOC: RADUSWWP 14:43
PROVIDERS: ATTEND Urology
DX: N40.0 Benign prostatic hyperplasia without lower urinary tract symptoms (principal); N18.30 Chronic kidney disease, stage 3 unspecified
CPT/HCPCS: 76770

== ENCOUNTER → 2020-08-01 | Outpatient (CLI) | payer BC ==
[2020-08-01 21:04] LABS: Total Volume 24 Hour,Urine 2000 mL
== END | disposition home or self-care (01) ==
LOC: LABWHC1 14:44
PROVIDERS: ATTEND Urology
DX: N18.30 Chronic kidney disease, stage 3 unspecified (principal)
CPT/HCPCS: 36415; 81050; 82575; 84156

== ENCOUNTER → 2022-12-23 | Outpatient (CLI) | payer BC ==
[2022-12-23 15:23] LABS: Basophils # (A) 0.04 X 10*3/uL (0.00-0.10); Basophils % (A) 0.8 %; Eosinophils # (A) 0.06 X 10*3/uL (0.04-0.35); Eosinophils % (A) 1.2 %; HCT 45.1 % (39.6-50.0); HGB 14.6 g/dL (13.0-17.0); Immature Grans, Automated 0.8 %; Lymphocytes # (A) 1.04 X 10*3/uL (0.90-5.00); Lymphocytes % (A) 20.6 %; MCH 29.1 pg (27.0-32.0); MCHC 32.4 g/dL (32.0-37.0); Monocytes # (A) 0.49 X 10*3/uL (0.20-1.00); Monocytes % (A) 9.7 %; NRBC Per 100 WBC 0 /100 WBCS (0.0-0.0); Neutrophils # (A) 3.39 X 10*3/uL (1.80-7.70); Neutrophils % (A) 66.9 %; Platelet Count 190 X 10*3/uL (140-440); RBC 5.01 X 10*6/uL (4.40-5.60); RDW 13.5 % (11.5-14.5); WBC 5.06 X 10*3/uL (4.50-10.00)
[2022-12-23 15:56] LABS: ALT 23 U/L (10-49); AST 23 U/L (14-35); African American GFR (CKD) 56.1 (60.0-200.0); Albumin 4.3 g/dL (3.8-4.9); Albumin/Globulin Ratio 2.02 (1.60-3.17); Alkaline Phosphatase 118 U/L (41-126); BUN/Creat Ratio 15.82 Ratio (12.00-20.00); Blood Urea Nitrogen 23.1 mg/dL (9.0-27.0); Calcium 9.6 mg/dL (8.7-10.3); Carbon Dioxide 27.9 mmol/L (20.0-27.5); Chloride 108 mmol/L (96-109); Chol/HDL Ratio 2.74 Ratio; Globulin 2.1 g/dL (1.6-3.3); Glucose 96 mg/dL (70-110); LDL Cholesterol,Calculated 92.6 mg/dL (0.0-131.0); Non-African American GFR(CKD) 48.4 (60.0-200.0); Potassium 5.2 mmol/L (3.5-5.5); Sodium 144 mmol/L (135-145); Total Protein 6.4 g/dL (6.2-8.2)
== END | disposition home or self-care (01) ==
LOC: LABWHC1 08:28
PROVIDERS: ATTEND Internal Medicine Geriatric Medicine
DX: E78.49 Other hyperlipidemia (principal); N40.1 Benign prostatic hyperplasia with lower urinary tract symptoms; N18.9 Chronic kidney disease, unspecified; R73.9 Hyperglycemia, unspecified
CPT/HCPCS: 36415; 80053; 80061; 83036; 84153; 84443; 85025